=== PATIENT | female | born 1980 | race Asian ===

== ENCOUNTER 2017-01-25 07:13 | Inpatient (IN) | payer OTHER ==
[2017-01-25] MEDS ORDERED: ceFOXitin 2 GM IVPREMIX* 2 GM/50 ML BAG ONE (09:09)
[2017-01-25] MEDS ORDERED: Sodium Citrate/Citric Acid* 15 ML UDC ONE (09:36)
[2017-01-25] MEDS ORDERED: Morphine PF AMP (0.5MG/ML)* 5 MG/10 ML AMP ONE (09:44)
[2017-01-25] MEDS ORDERED: Phenylephrine IV* 40 MCG/ML 10 ML SYRINGE ONE (09:48)
[2017-01-25] MEDS ORDERED: OXYTOCIN* 10 UNITS/ML 1 ML VIAL ONE (09:48)
[2017-01-25] MEDS ORDERED: Ondansetron INJ* 2 MG/ML VIAL IV PRN ×2 (10:10→10:16)
[2017-01-25] MEDS ORDERED: diPHENhydraMINE IV* 50 MG/ML 1 ml VIAL (BENADRYL) IV PRN (10:10)
[2017-01-25] MEDS ORDERED: Morphine INJ* 2 MG/ML 1 ML SYRINGE IV PRN (10:10)
[2017-01-25] MEDS ORDERED: PROCHLORPERAZINE INJ 5 MG/ML 2 ML VIAL IV PRN (10:10)
[2017-01-25] MEDS ORDERED: Scopolamine 1.5 mg* PATCH TRANSDERM PRN (10:10)
[2017-01-25] MEDS ORDERED: fentaNYL* 50 MCG/ML 2 ML VIAL (100 MCG VIAL) IV PRN (10:10)
[2017-01-25] MEDS ORDERED: Naloxone* 0.4 MG/ML 1 ML VIAL IV PRN (10:16)
[2017-01-25] MEDS ORDERED: oxyCODONE/Acetamin 5/325 MG* TAB PO PRN (10:16)
[2017-01-25] MEDS ORDERED: HYDROcodone/ACETAMIN 5-325 MG* 1 TAB PO PRN (10:16)
[2017-01-25] MEDS ORDERED: Nalbuphine* 20 MG/ML 1 ML VIAL IV PRN (10:16)
[2017-01-25] MEDS ORDERED: Ketorolac INJ* 30 MG/ML 1 ML VIAL ONE (10:58)
[2017-01-25] MEDS ORDERED: Witch Hazel PAD* JAR TOPICAL PRN (11:32)
[2017-01-25] MEDS ORDERED: Dibucaine 1% 28.35 GM TUBE PR PRN (11:32)
[2017-01-25] MEDS ORDERED: Glycerin ADULT SUPP PR PRN (11:32)
[2017-01-25] MEDS: Simethicone CHEW TAB* 80 MG PO SCH ×2 (13:12→21:04)
[2017-01-25] MEDS: Docusate CAP* 100 MG PO SCH ×2 (14:41→21:04)
[2017-01-25] MEDS: Ketorolac INJ* 30 MG/ML 1 ML VIAL IV PRN ×2 (14:41→21:03)
[2017-01-26] MEDS ORDERED: oxyCODONE/Acetamin 5/325 MG* TAB PO PRN ×2 (02:30)
--- NOTE | 2017-01-26 06:07 | OP ---
DATE OF OPERATION: 01/25/17 - ROOM #117 DATE OF : 78 SURGEON: Radha Smith MD ASSOCIATE PROFESSOR OF MATHEMATICS: Estela Guajardo CNM ANESTHESIOLOGIST: David Hodges MD ANESTHESIA: Spinal. PRE-OP DIAGNOSIS: History of previous with current at 39 weeks. POST-OP DIAGNOSIS: History of previous with current at 39 weeks. OPERATIVE PROCEDURE: Repeat low-transverse section and excision of keloid. INDICATIONS: This patient is a 36-year-old 2, para 1 at 39 weeks' gestation. The patient was followed during her and desired to have a repeat section performed. The patient speaks very little [place] Citizen, so a able seaman was used both in the office for preop counseling and also in the hospital for anesthesia counseling. Consent was signed. ESTIMATED BLOOD LOSS: 800 cc. URINE OUTPUT: 800 cc. IV FLUIDS: 1500 cc lactated Ringer's. MATERIALS TO LAB: Cord blood. FINDINGS: Keloid from prior Pfannensteil incision, about 4mm wide. Normal- appearing uterus, fallopian tubes, and ovaries. Bladder was adhesed fairly high up on the uterus and this required additional dissection of the bladder in the midline to free it up from the midline incision extension. Delivery was productive of a male weighing 7 pounds 14 ounces with ' s of 9 and 9. Time of delivery was 1033. COMPLICATIONS: None. DESCRIPTION OF PROCEDURE: The risks, benefits, and alternatives were described to the patient, and informed consent was obtained. The patient was taken to the operating room with IV running, where spinal anesthesia was induced and found to be adequate. The patient was prepped and draped in normal sterile fashion in the dorsal supine position with a leftward tilt. The previous keloided Pfannenstiel skin incision was excised using the scalpel above and below, and then the Bovie was used to take down the subcutaneous tissue. The incision was the carried down to the underlying fascia using the Bovie The fascia was scored in the midline, and the incision was extended using Leon scissors. The fascia was dissected off the underlying rectus muscles using blunt and sharp dissection. The rectus muscles were in the midline using dissection with a Cheryl clamp. The peritoneum was then entered bluntly. A bladder blade was placed. A bladder flap was created sharply using Metzenbaum scissors. A low transverse uterine incision was then made with the scalpel. This was carried down to the amniotic membranes. The membranes were then ruptured, productive of clear fluid. The uterine incision was extended using blunt traction. The head was elevated to the level of the incision , and, with fundal pressure, the head delivered without difficulty. The shoulders then were also both delivered and the body followed. The infant had excellent tone and cried immediately on delivery. The cord was doubly clamped and cut. The infant was then handed to the awaiting healthcare market consultant. Cord blood was collected. The placenta was delivered with manual extraction. The uterus was then exteriorized and cleared of all clots and debris. A midline extension of the incision was noted, so this was reapproximated with running 0-Polysorb. The transverse uterine incision was then reapproximated using 0 Polysorb in a running-locked fashion. A second layer of imbricating 0 Polysorb sutures was then also placed for good hemostasis. The bladder was noted to be adhesed somewhat high, especially in the midline, so part of the serosa was incorporated into the midline extension closure. This suture was then cut and removed. With gentle dissection, the bladder was brought down farther from the incision. The bladder was then backfilled with sterile water, and there was no leakage with at least 100cc filling it. The midline extension was then re-closed with 0-Polysorb. The posterior cul-de-sac was irrigated with saline. The uterus was then returned to the abdomen. The incision was reinspected and still noted to be hemostatic. The peritoneum was closed with 3- 0 Polysorb in a running fashion. The fascia was closed with 0 Polysorb in a running fashion. The subcutaneous tissues were copiously irrigated and made hemostatic using the Bovie. The skin was then closed with 4-0 Monocryl in a subcuticular stitch. Mastisol and steristrips were then applied. A sterile bandage was then placed over the incision. The patient tolerated the procedure well. Sponge, lap, and needle counts were correct x2. [id number]/[facility] #: [id number] MTDD
[2017-01-26 06:56] LABS: Hematocrit 31 % (35-47); Hemoglobin 10.6 g/dl (12.0-16.0); Mean Corpuscular HGB Conc 34 g/dl (31-36); Mean Corpuscular Hemoglobin 31 pg (27-31); Mean Corpuscular Volume 91 fL (80-97); Mean Platelet Volume 9 um3 (7.4-10.4); Red Cell Distribution Width 14 % (10.5-15); White Blood Count 10.7 10^3/ul (3.5-10.8)
[2017-01-26] MEDS: Simethicone CHEW TAB* 80 MG PO SCH ×4 (08:56→20:39)
[2017-01-26] MEDS: Docusate CAP* 100 MG PO SCH ×3 (08:57→20:39)
[2017-01-26] MEDS: Ibuprofen TAB* 600 MG PO SCH ×4 (08:57→20:39)
[2017-01-26] MEDS: Ferrous Gluconate TAB* 324 MG TAB PO SCH (09:00)
[2017-01-27] MEDS: Ibuprofen TAB* 600 MG PO SCH ×4 (05:58→23:56)
[2017-01-27] MEDS: Ferrous Gluconate TAB* 324 MG TAB PO SCH (06:21)
[2017-01-27] MEDS: Simethicone CHEW TAB* 80 MG PO SCH ×4 (09:20→20:39)
[2017-01-27] MEDS: Docusate CAP* 100 MG PO SCH ×3 (09:20→20:39)
[2017-01-27] MEDS ORDERED: Tetan/Diph/Pertus SYR(Tdap)* 0.5 ML SYR(BOOSTRIX) use SYR IM ONE (12:00)
[2017-01-28] MEDS: Ibuprofen TAB* 600 MG PO SCH ×3 (06:34→18:01)
[2017-01-28 07:43] VITALS: BP 101/61
[2017-01-28] MEDS: Docusate CAP* 100 MG PO SCH ×2 (09:10→12:12)
[2017-01-28] MEDS: Simethicone CHEW TAB* 80 MG PO SCH ×3 (09:10→18:01)
[2017-01-28] MEDS ORDERED: Scopolomine PATCH Remove* 1 NOTE MISC PATCH OFF ONE (10:13)
== END 2017-01-28 18:30 | disposition home or self-care (01) | DRG 766 ==
LOC: MCHOB 07:13
PROVIDERS: ADMIT Obstetrics & Gynecology; ATTEND Obstetrics & Gynecology
PROC: 10D00Z1 Extraction of Products of Conception, Low, Open Approach (ICD-10-PCS; 2017-01-25)
PROC: 4A1HX4Z Monitoring of Products of Conception, Cardiac Electrical Activity, External Approach (ICD-10-PCS; 2017-01-25)
PROC: 10907ZC Drainage of Amniotic Fluid, Therapeutic from Products of Conception, Via Natural or Artificial Opening (ICD-10-PCS; principal; 2017-01-25 09:15)
DX: O34.211 Maternal care for low transverse scar from previous cesarean delivery (principal); O24.429 Gestational diabetes mellitus in childbirth, unspecified control; Z37.0 Single live birth; Z3A.39 39 weeks gestation of pregnancy
CPT/HCPCS: 36415; 85025; 90715; A9270-GY; J0694; J1885; J2590